=== PATIENT | female | born 1995 | race Caucasian/White ===

== ENCOUNTER 2017-01-13 21:20 | Emergency (ER) | payer MEDICAID, OTHER ==
[~2017-01-13] VITALS: Ht 165.1 cm; Wt 54.1 kg
[~2017-01-13 21:20] MED LIST: LEV063IS NEB
[2017-01-13 22:27] LABS: Urine Bilirubin Negative (Negative); Urine Blood Negative /uL (Negative); Urine Color Yellow (Yellow); Urine Glucose Normal (Normal); Urine Ketone Negative (Negative); Urine Mucus FEW (None Seen); Urine Nitrite Negative (Negative); Urine RBC 3 /hpf (0 - 4); Urine Squamous Epithelial Cell FEW /hpf (<5); Urine Urobilinogen Normal (Negative)
[2017-01-13 22:49] LABS: Basophils # (auto) 0 uL; Basophils % (auto) 0.1 % (0.0-2.0); CONDITION Y; Eosinophils # (auto) 0.1 uL; Hematocrit 40.6 % (36.0-46.0); Hemoglobin 13.7 g/dL (12.2-16.2); Lymphocytes % (auto) 26.2 % (10.0-50.0); Mean Corpuscular Hemoglobin 27.6 pg (28.0-32.0); Mean Corpuscular Hgb Conc. 33.8 g/dL (32.0-36.0); Mean Corpuscular Volume 81.6 fL (80.0-100.0); Monocytes # (auto) 0.6 uL; Monocytes % (auto) 7.5 % (0.0-12.0); Neutrophils % (auto) 65.2 % (37.0-80.0); Platelet Count (auto) 311 10^3/uL (140-450); Red Cell Distribution Width 15.5 % (11.6-16.0); White Blood Cell 7.7 10^3/uL (4.4-10.8)
[2017-01-13 23:06] LABS: BUN/Creatinine Ratio 19.7; Calcium 8.8 mg/dL (8.5-10.1); Magnesium 2.2 mg/dL (1.6-2.6); Potassium 3.9 mmol/L (3.5-5.1)
[2017-01-13 23:09] LABS: Bilirubin, Total 0.3 mg/dL (0.2-1.0); Total Protein 7.3 g/dL (6.4-8.2)
[2017-01-14 07:38] VITALS: BP 106/59
[2017-01-14] MEDS ORDERED: NITROFURANTOIN (MONO) 100 mg CAP PO ONE (08:00)
[2017-01-14] MEDS ORDERED: PANTOPRAZOLE 40 MG TAB PO ONE (08:15)
== END 2017-01-14 08:39 | disposition home or self-care (01) ==
LOC: ER 21:41
DX: K29.70 Gastritis, unspecified, without bleeding (principal); N39.0 Urinary tract infection, site not specified; J45.909 Unspecified asthma, uncomplicated; Z88.8 Allergy status to other drugs, medicaments and biological substances; Z79.899 Other long term (current) drug therapy
CPT/HCPCS: 36415; 71020; 80053; 80307; 81001; 83735; 84702; 85025

== ENCOUNTER 2017-01-23 22:05 | Emergency (ER) | payer OTHER ==
[~2017-01-23] VITALS: Ht 165.1 cm; Wt 52.2 kg
[2017-01-23 22:24] VITALS: BP 115/78
[2017-01-24] MEDS ORDERED: IBUPROFEN 600 MG TAB PO ONE (00:30)
== END 2017-01-24 00:46 | disposition home or self-care (01) ==
LOC: ER 22:10
DX: S93.402A Sprain of unspecified ligament of left ankle, initial encounter (principal); S90.32XA Contusion of left foot, initial encounter; J45.909 Unspecified asthma, uncomplicated; X50.1XXA Overexertion from prolonged static or awkward postures, initial encounter; Y93.89 Activity, other specified; Y99.8 Other external cause status; Y92.89 Other specified places as the place of occurrence of the external cause
CPT/HCPCS: 73620; 81025

== ENCOUNTER 2017-02-25 20:25 | Emergency (ER) | payer OTHER, MEDICAID ==
[~2017-02-25] VITALS: Ht 170.2 cm; Wt 49.9 kg
[2017-02-25] MEDS ORDERED: LORazepam 2MG/ML-1ML VIAL ONE (21:51)
[2017-02-25] MEDS ORDERED: LEVETIRACETAM 500 MG/5ML INJ IV ONE (21:58)
[2017-02-25] MEDS ORDERED: LEVETIRACETAM INJ 1,000 MG in SODIUM CHL 0.9% 100 ML IV ONE (22:15)
[2017-02-25] MEDS ORDERED: LORazepam 2MG/ML-1ML VIAL IV ONE (22:15)
[2017-02-25] MEDS ORDERED: ONDANSETRON HCL 4 MG/2 ML VIAL IV ONE (22:30)
[2017-02-25] MEDS ORDERED: MORPHINE SULF INJ 2 MG/ML SYRINGE 1ML IV ONE (22:30)
[2017-02-25 22:36] LABS: Urine Bilirubin Negative (Negative); Urine Blood Negative /uL (Negative); Urine Color Yellow (Yellow); Urine Glucose Normal (Normal); Urine Ketone Negative (Negative); Urine Mucus FEW (None Seen); Urine Nitrite Negative (Negative); Urine RBC 4 /hpf (0 - 4); Urine Squamous Epithelial Cell MOD /hpf (<5)
[2017-02-25 23:11] LABS: Basophils # (auto) 0 uL; Basophils % (auto) 0.3 % (0.0-2.0); CONDITION Y; Eosinophils # (auto) 0.2 uL; Eosinophils % (auto) 3.7 % (0.0-7.0); Hematocrit 37.3 % (36.0-46.0); Hemoglobin 12.5 g/dL (12.2-16.2); Lymphocytes # (auto) 1.4 uL; Lymphocytes % (auto) 25.1 % (10.0-50.0); Mean Corpuscular Hemoglobin 28.1 pg (28.0-32.0); Mean Corpuscular Hgb Conc. 33.5 g/dL (32.0-36.0); Mean Corpuscular Volume 84.1 fL (80.0-100.0); Monocytes # (auto) 0.4 uL; Monocytes % (auto) 6.9 % (0.0-12.0); Neutrophils # (auto) 3.5 uL; Platelet Count (auto) 244 10^3/uL (140-450); Red Cell Distribution Width 16.7 % (11.6-16.0); White Blood Cell 5.4 10^3/uL (4.4-10.8)
[2017-02-25 23:48] LABS: Potassium 4.1 mmol/L (3.5-5.1)
[2017-02-25 23:55] LABS: Albumin 3.6 g/dL (3.4-5.0); BUN/Creatinine Ratio 21.9; Bilirubin, Total 0.4 mg/dL (0.2-1.0)
[2017-02-26] MEDS ORDERED: LORazepam 2MG/ML-1ML VIAL IV ONE
[2017-02-26] MEDS ORDERED: cefTRIAXone 1GM/50ML D5W 50 ML IV ONE (01:45)
[2017-02-26 08:19] VITALS: BP 102/52
== END 2017-02-26 08:25 | disposition home or self-care (01) ==
LOC: EDBD 20:25 → ER 20:28
DX: G40.909 Epilepsy, unspecified, not intractable, without status epilepticus (principal); J45.909 Unspecified asthma, uncomplicated; N39.0 Urinary tract infection, site not specified
CPT/HCPCS: 36415; 70450; 80053; 80307; 81001; 81025; 85025; 96365; 96366; 96367; 96375; 96376; 99285; J0696; J1953; J2060; J2270; J2405

== ENCOUNTER 2017-02-26 11:51 | Emergency (ER) | payer OTHER, MEDICAID ==
[~2017-02-26] VITALS: Ht 165.1 cm; Wt 54.4 kg
[2017-02-26] MEDS ORDERED: clonazePAM 0.5 MG TAB PO ONE (15:15)
[2017-02-26] MEDS ORDERED: ACETAMINOPHEN 500 MG TAB PO ONE (16:00)
[2017-02-26] MEDS ORDERED: LORazepam 2MG/ML-1ML VIAL ONE ×2 (16:46→18:03)
[2017-02-26] MEDS ORDERED: ALBUTEROL SULF 2.5 MG/0.5ML(0.5%) NEB SOLN NEB ONE ×2 (17:00→17:15)
[2017-02-26] MEDS ORDERED: LORazepam 2MG/ML-1ML VIAL IV ONE ×2 (17:00→17:15)
[2017-02-26] MEDS ORDERED: IPRATROPIUM BROM 0.5 MG/2.5ML INH SOL NEB ONE ×2 (17:00→17:15)
[2017-02-26] MEDS ORDERED: AMMONIA 0.33 ML INHALANT IN ONE (18:07)
[2017-02-26 18:10] VITALS: BP 105/66
== END 2017-02-26 18:40 | disposition short-term general hospital (02) ==
LOC: EDBD 11:51 → ER 11:51
DX: G40.909 Epilepsy, unspecified, not intractable, without status epilepticus (principal); N39.0 Urinary tract infection, site not specified; R42 Dizziness and giddiness; J45.909 Unspecified asthma, uncomplicated; R41.82 Altered mental status, unspecified
CPT/HCPCS: 94640; 96374; 96375; 99285; J2060

== ENCOUNTER 2018-02-01 14:16 | Emergency (ER) | payer OTHER, MEDICAID ==
[2018-02-01] MEDS ORDERED: LORazepam 2MG/ML-1ML VIAL ONE ×3 (14:29→22:49)
[2018-02-01] MEDS ORDERED: SODIUM CHLORIDE 0.9% 1,000 ML IV ONE (14:38)
[2018-02-01] MEDS ORDERED: LORazepam 2MG/ML-1ML VIAL IV ONE ×2 (14:45)
[2018-02-01] MEDS ORDERED: LEVETIRACETAM INJ 1,000 MG in D5W 5% 100 ML IV ONE (14:45)
[2018-02-01 15:00] LABS: Basophils # (auto) 0 uL; Basophils % (auto) 0.2 % (0.0-2.0); Eosinophils # (auto) 0.1 uL; Eosinophils % (auto) 0.6 % (0.0-7.0); Hematocrit 41.8 % (36.0-46.0); Hemoglobin 14.3 g/dL (12.2-16.2); Lymphocytes % (auto) 11.5 % (10.0-50.0); Mean Corpuscular Hemoglobin 29.6 pg (28.0-32.0); Mean Corpuscular Hgb Conc. 34.2 g/dL (32.0-36.0); Mean Corpuscular Volume 86.4 fL (80.0-100.0); Monocytes # (auto) 0.5 uL; Monocytes % (auto) 5.3 % (0.0-12.0); Neutrophils # (auto) 7.5 uL; Neutrophils % (auto) 82.4 % (37.0-80.0); Platelet Count (auto) 240 10^3/uL (140-450); Red Blood Cells 4.83 10^6/uL (4.0-5.20); Red Cell Distribution Width 13.4 % (11.8-14.3); White Blood Cell 9.1 10^3/uL (4.4-10.8)
[2018-02-01 15:21] LABS: BUN/Creatinine Ratio 9.9; Bilirubin, Total 0.7 mg/dL (0.2-1.0); Calcium 8.5 mg/dL (8.5-10.1); Potassium 3.5 mmol/L (3.5-5.1)
[2018-02-01 15:33] LABS: Beta HCG, Quantitative < 1 mlU/mL (1-3); Thyroid Stimulating Hormone 0.92 uIU/mL (0.358-3.74)
[2018-02-01] MEDS ORDERED: IBUPROFEN 600 MG TAB PO ONE (16:15)
[2018-02-01 16:58] LABS: Alcohol, Urine < 3.0 mg/dL (0-5); Amphetamine Screen, Urine NEGATIVE (NEGATIVE); Barbiturate Scree,Urine NEGATIVE (NEGATIVE); Benzodiazephine Screen, Urine POSITIVE (NEGATIVE); Cannabinoid Screen, Urine NEGATIVE (NEGATIVE); Cocaine Screen, Urine NEGATIVE (NEGATIVE); Opiate Scree,Urine NEGATIVE (NEGATIVE); Phencyclidine Screen, Urine NEGATIVE (NEGATIVE)
[2018-02-01 17:00] LABS: Urine Bacteria FEW /hpf (None Seen); Urine Blood Negative /uL (Negative); Urine Mucus FEW (None Seen); Urine Specific Gravity 1.019 (1.001-1.035); Urine WBC 14 /hpf (0 - 5)
[2018-02-01 18:10] VITALS: BP 104/57
[2018-02-01] MEDS ORDERED: PHENobarbital SODIUM 130 MG/ML VL ONE (23:29)
[2018-02-01] MEDS ORDERED: PHENobarbital SODIUM 65 MG/ML VL ONE (23:29)
== END 2018-02-01 18:28 | disposition home or self-care (01) ==
LOC: ER 14:16 → EDBD 14:16 → ER 18:28
DX: G40.909 Epilepsy, unspecified, not intractable, without status epilepticus (principal); N39.0 Urinary tract infection, site not specified; J45.909 Unspecified asthma, uncomplicated; F17.210 Nicotine dependence, cigarettes, uncomplicated; F12.10 Cannabis abuse, uncomplicated
CPT/HCPCS: 36415; 70450; 71045; 80053; 80307; 81001; 81025; 82962; 83735; 84443; 84702; 85025; 93005; 94761; 99285; J1953; J2060; J7060

== ENCOUNTER 2018-02-01 21:18 | Emergency (ER) | payer OTHER, MEDICAID ==
[~2018-02-01] VITALS: Ht 167.6 cm; Wt 54.4 kg
[~2018-02-01 21:18] MED LIST changes: +LORazepam 2MG/ML-1ML VIAL ONE
[2018-02-01] MEDS ORDERED: LORazepam 2MG/ML-1ML VIAL IV ONE ×2 (21:30→23:00)
[2018-02-01 22:28] LABS: Basophils # (auto) 0 uL; Basophils % (auto) 0.2 % (0.0-2.0); Eosinophils # (auto) 0.1 uL; Eosinophils % (auto) 1.2 % (0.0-7.0); Hematocrit 36.8 % (36.0-46.0); Hemoglobin 12.8 g/dL (12.2-16.2); Lymphocytes # (auto) 1.3 uL; Lymphocytes % (auto) 22.8 % (10.0-50.0); Mean Corpuscular Hemoglobin 30.2 pg (28.0-32.0); Mean Corpuscular Hgb Conc. 34.9 g/dL (32.0-36.0); Mean Corpuscular Volume 86.3 fL (80.0-100.0); Monocytes # (auto) 0.4 uL; Monocytes % (auto) 8.1 % (0.0-12.0); Neutrophils # (auto) 3.7 uL; Neutrophils % (auto) 67.7 % (37.0-80.0); Nucleated Red Blood Cells % 0.1 %; Platelet Count (auto) 205 10^3/uL (140-450); Red Blood Cells 4.26 10^6/uL (4.0-5.20); Red Cell Distribution Width 13.6 % (11.8-14.3); White Blood Cell 5.5 10^3/uL (4.4-10.8)
[2018-02-01 22:51] LABS: Albumin 3.7 g/dL (3.4-5.0); BUN/Creatinine Ratio 12.5; Bilirubin, Total 0.9 mg/dL (0.2-1.0); Calcium 8.2 mg/dL (8.5-10.1); Potassium 3.3 mmol/L (3.5-5.1); Total Protein 6.2 g/dL (6.4-8.2)
[2018-02-01] MEDS ORDERED: LEVETIRACETAM 500 MG/5ML INJ IV ONE (22:53)
[2018-02-01] MEDS ORDERED: LEVETIRACETAM INJ 1,000 MG in D5W 5% 100 ML IV ONE (23:00)
[2018-02-01] MEDS ORDERED: PHENobarbital SODIUM INJ 600 MG in SODIUM CHL 0.9% 100 ML IV ONE (23:15)
[2018-02-01] MEDS ORDERED: POTASSIUM CHL 20 Meq TABLET PO ONE (23:45)
[2018-02-02 00:12] VITALS: BP 104/66
[2018-02-02] MEDS ORDERED: NALBUPHINE HCL 10 MG/1ml INJECTION IV ONE (00:15)
== END 2018-02-02 00:37 | disposition short-term general hospital (02) ==
LOC: ER 21:18
DX: G40.909 Epilepsy, unspecified, not intractable, without status epilepticus (principal); E87.6 Hypokalemia; F17.210 Nicotine dependence, cigarettes, uncomplicated; F12.10 Cannabis abuse, uncomplicated; J45.909 Unspecified asthma, uncomplicated; Z88.6 Allergy status to analgesic agent
CPT/HCPCS: 36415; 80053; 85025; 94761; 96365; 96375; 96376; 99285; J1953; J2060; J2300; J2560; J7060

== ENCOUNTER 2018-08-17 22:41 | Emergency (ER) | payer OTHER, MEDICAID ==
[~2018-08-17] VITALS: Ht 165.1 cm; Wt 54.4 kg
[~2018-08-17 22:41] MED LIST changes: -LORazepam 2MG/ML-1ML VIAL ONE
[2018-08-17 23:22] LABS: Basophils # (auto) 0 uL; Basophils % (auto) 0.3 % (0.0-2.0); Eosinophils # (auto) 0.1 uL; Eosinophils % (auto) 1.2 % (0.0-7.0); Hematocrit 40.1 % (36.0-46.0); Hemoglobin 13.5 g/dL (12.2-16.2); Lymphocytes # (auto) 0.9 uL; Lymphocytes % (auto) 12.7 % (10.0-50.0); Mean Corpuscular Hemoglobin 29.2 pg (28.0-32.0); Mean Corpuscular Hgb Conc. 33.7 g/dL (32.0-36.0); Mean Corpuscular Volume 86.6 fL (80.0-100.0); Monocytes # (auto) 0.7 uL; Monocytes % (auto) 9.2 % (0.0-12.0); Neutrophils # (auto) 5.5 uL; Neutrophils % (auto) 76.6 % (37.0-80.0); Platelet Count (auto) 286 10^3/uL (140-450); Red Blood Cells 4.63 10^6/uL (4.0-5.20); Red Cell Distribution Width 14.3 % (11.8-14.3); White Blood Cell 7.2 10^3/uL (4.4-10.8)
[2018-08-17 23:41] LABS: Albumin 3.7 g/dL (3.4-5.0); Anion Gap 14 (5-15); Blood Alcohol < 3.0 mg/dL (0-5); Blood Urea Nitrogen 19 mg/dL (7-18); Calcium 8.4 mg/dL (8.5-10.1); Carbon Dioxide 20 mmol/L (21-32); Chloride 108 mmol/L (98-107); Glucose 100 mg/dL (74-106); Potassium 3.2 mmol/L (3.5-5.1); Sodium 142 mmol/L (136-145)
[2018-08-17 23:42] LABS: BUN/Creatinine Ratio 19.8; GFR African American 94 mL/min; GFR Non-African American 78 mL/min
[2018-08-17 23:45] LABS: Alanine Aminotransferase 55 U/L (13-56); Alkaline Phosphatase 50 U/L (45-117); Aspartate Aminotransferase 29 U/L (15-37); Bilirubin, Total 0.4 mg/dL (0.2-1.0); Total Protein 6.7 g/dL (6.4-8.2)
[2018-08-18 00:18] LABS: Phenytoin (Dilantin) < 0.4 ug/mL (10-20); Valproic Acid (Depakene) < 3.0 ug/mL (50-100)
[2018-08-18] MEDS ORDERED: LORazepam 2MG/ML-1ML VIAL ONE ×3 (00:24→06:44)
[2018-08-18] MEDS ORDERED: LEVETIRACETAM 500 MG/5ML INJ IV ONE (00:44)
[2018-08-18] MEDS ORDERED: LEVETIRACETAM INJ 1,000 MG in D5W 5% 100 ML IV ONE (00:45)
[2018-08-18] MEDS ORDERED: LORazepam 2MG/ML-1ML VIAL IV ONE ×3 (03:00→06:45)
[2018-08-18] MEDS ORDERED: MIDAZOLAM HCL 1MG/1ML-2 ML VIAL ONE (06:57)
[2018-08-18] MEDS ORDERED: MIDAZOLAM HCL 1MG/1ML-2 ML VIAL IV ONE ×3 (07:15→10:45)
[2018-08-18] MEDS ORDERED: POTASSIUM CHL 20MEQ/100ML 100 ML IV ONE (07:45)
[2018-08-18 10:31] VITALS: BP 99/63
== END 2018-08-18 10:58 | disposition short-term general hospital (02) ==
LOC: EDUNIT# 22:41 → EDBD 22:41 → ER 22:54
DX: G40.909 Epilepsy, unspecified, not intractable, without status epilepticus (principal); E87.6 Hypokalemia; E86.0 Dehydration; J45.909 Unspecified asthma, uncomplicated; F17.210 Nicotine dependence, cigarettes, uncomplicated; F12.10 Cannabis abuse, uncomplicated; Z91.14 Patient's other noncompliance with medication regimen
CPT/HCPCS: 36415; 70450; 71045; 72125; 80053; 80164; 80185; 80320; 84702; 85025; 96365; 96366; 96367; 96375; 96376; 99285; J1953; J2060; J2250; J3480; J7030; J7060

== ENCOUNTER 2018-10-09 20:54 | Inpatient (IN) | payer OTHER, MEDICAID ==
[~2018-10-09] VITALS: Ht 162.6 cm; Wt 64.0 kg
[2018-10-09] MEDS ORDERED: LORazepam 2MG/ML-1ML VIAL IV ONE ×2 (21:15)
[2018-10-09] MEDS ORDERED: LEVETIRACETAM INJ 1,000 MG in D5W 5% 100 ML IV ONE (21:15)
[2018-10-09 21:53] LABS: Basophils # (auto) 0 uL; Basophils % (auto) 0.5 % (0.0-2.0); Eosinophils # (auto) 0.1 uL; Eosinophils % (auto) 1.3 % (0.0-7.0); Hematocrit 41.4 % (36.0-46.0); Hemoglobin 13.8 g/dL (12.2-16.2); Lymphocytes # (auto) 0.8 uL; Lymphocytes % (auto) 14.5 % (10.0-50.0); Mean Corpuscular Hemoglobin 28.8 pg (28.0-32.0); Mean Corpuscular Hgb Conc. 33.4 g/dL (32.0-36.0); Mean Corpuscular Volume 86.1 fL (80.0-100.0); Monocytes # (auto) 0.5 uL; Monocytes % (auto) 9.3 % (0.0-12.0); Neutrophils # (auto) 4.3 uL; Neutrophils % (auto) 74.4 % (37.0-80.0); Nucleated Red Blood Cells % 0.1 %; Platelet Count (auto) 224 10^3/uL (140-450); Red Blood Cells 4.81 10^6/uL (4.0-5.20); Red Cell Distribution Width 14.4 % (11.8-14.3); White Blood Cell 5.8 10^3/uL (4.4-10.8)
[2018-10-09] MEDS ORDERED: ETOMIDATE (2MG/ML) 20ML VIAL IV ONE ×2 (21:53→23:00)
[2018-10-09] MEDS ORDERED: SUCCINYLCHOLINE CHLORIDE 20 MG/ML 10ML VIAL IV ONE ×2 (21:53→23:00)
[2018-10-09 22:07] LABS: Alanine Aminotransferase 20 U/L (13-56); Albumin 3.8 g/dL (3.4-5.0); Anion Gap 11 (5-15); Blood Alcohol < 3.0 mg/dL (0-5); Blood Urea Nitrogen 15 mg/dL (7-18); Calcium 8.5 mg/dL (8.5-10.1); Carbon Dioxide 22 mmol/L (21-32); Chloride 107 mmol/L (98-107); Glucose 91 mg/dL (74-106); Potassium 3.3 mmol/L (3.5-5.1); Sodium 140 mmol/L (136-145)
[2018-10-09 22:10] LABS: Alkaline Phosphatase 63 U/L (45-117); Aspartate Aminotransferase 12 U/L (15-37); BUN/Creatinine Ratio 16.7; Bilirubin, Total 0.4 mg/dL (0.2-1.0); GFR African American 101 mL/min; GFR Non-African American 83 mL/min; Total Protein 6.8 g/dL (6.4-8.2)
[2018-10-09] MEDS: PROPOFOL 100 ML IV SCH (22:10)
[2018-10-09] MEDS ORDERED: PROPOFOL 100 ML IV ONE (22:15)
[2018-10-09] MEDS: MIDAZOLAM DRIP 50 mg/50mL 50 ML IV SCH (22:30)
[2018-10-09] MEDS ORDERED: fentaNYL Drip 2500mCg/250mlNS 250 ML IV SCH (22:35)
[2018-10-09] MEDS ORDERED: fentaNYL Drip 2500mCg/250mlNS 250 ML IV ONE (22:38)
[2018-10-09] MEDS: fentaNYL Drip 2500mCg/250mlNS 250 ML IV SCH (22:48)
[2018-10-09] MEDS: SODIUM CHLORIDE 0.9% 1,000 ML IV SCH (23:57)
[2018-10-10] VITALS (78 sets, daily range): BP systolic 81–166; BP diastolic 37–74
[2018-10-10 00:04] LABS: Urine Bacteria FEW /hpf (None Seen); Urine Blood Negative /uL (Negative); Urine Mucus FEW (None Seen); Urine Specific Gravity 1.025 (1.001-1.035); Urine WBC 8 /hpf (0 - 5)
[2018-10-10 00:23] LABS: Alcohol, Urine < 3.0 mg/dL (0-5)
[2018-10-10 00:24] LABS: Amphetamine Screen, Urine NEGATIVE (NEGATIVE); Barbiturate Scree,Urine NEGATIVE (NEGATIVE); Benzodiazephine Screen, Urine POSITIVE (NEGATIVE); Cannabinoid Screen, Urine POSITIVE (NEGATIVE); Cocaine Screen, Urine NEGATIVE (NEGATIVE); Opiate Scree,Urine NEGATIVE (NEGATIVE); Phencyclidine Screen, Urine NEGATIVE (NEGATIVE)
[2018-10-10 00:45] LABS: Phenytoin (Dilantin) < 0.4 ug/mL (10-20); Valproic Acid (Depakene) 5 ug/mL (50-100)
[2018-10-10] MEDS ORDERED: cefTRIAXone 1GM/50ML D5W 50 ML IV ONE (03:15)
[2018-10-10] MEDS ORDERED: ONDANSETRON HCL 4 MG/2 ML VIAL IV PRN (05:30)
[2018-10-10] MEDS ORDERED: ACETAMINOPHEN 500 MG TAB PO PRN (05:30)
--- NOTE | 2018-10-10 05:43 | NUR ---
REPORT RECEIVED FROM BRANDON KEATING RN.
--- NOTE | 2018-10-10 06:15 | NUR ---
Admit to ICU from ER on vent DANIEL,AMBERadmitted to ICU via gurney on healthcare science specialist, intubated and being bagged by Respiratory Therapist. Patient transfered to bed, connected to mechanical ventilator by therapist, RHONDA at bedside. Patient connected to ICU monitoring, weighed by bedscale, oriented to Mike Bass, primary RN, unit, ventilator and sedation. NOTE:
[2018-10-10] MEDS ORDERED: ALBUTEROL SULF 2.5 MG/0.5ML(0.5%) NEB SOLN NEB PRN (06:45)
[2018-10-10] MEDS ORDERED: LORazepam 2MG/ML-1ML VIAL IV PRN (06:45)
--- NOTE | 2018-10-10 07:35 | NUR ---
SPOKE WITH FATHER OF PT NOLVIA CABEZAS VIA TELEPHONE, HE PROVIDED PT NAME , GAVE UPDATE. FATHER LIVES IN [place] DID NOT WANT TO SET UP PASS WORD UNTIL HE SPEAKS WITH MOTHER OF PT AND SISTER.
--- NOTE | 2018-10-10 08:15 | NUR ---
PATIENTS SISTER TIA CALLED FOR UPDATE PROVIDED PASSWORD, UPDATED ON CURRENT STATUS AND PLAN OF CARE.
[2018-10-10 08:25] LABS: Basophils # (auto) 0 uL; Basophils % (auto) 0.2 % (0.0-2.0); Eosinophils # (auto) 0.1 uL; Eosinophils % (auto) 1.6 % (0.0-7.0); Hematocrit 43.6 % (36.0-46.0); Hemoglobin 14.3 g/dL (12.2-16.2); Lymphocytes # (auto) 1.8 uL; Lymphocytes % (auto) 20.5 % (10.0-50.0); Mean Corpuscular Hemoglobin 28.9 pg (28.0-32.0); Mean Corpuscular Hgb Conc. 32.7 g/dL (32.0-36.0); Mean Corpuscular Volume 88.3 fL (80.0-100.0); Monocytes # (auto) 0.9 uL; Monocytes % (auto) 10.7 % (0.0-12.0); Neutrophils # (auto) 5.9 uL; Nucleated Red Blood Cells % 0.1 %; Platelet Count (auto) 192 10^3/uL (140-450); Red Blood Cells 4.94 10^6/uL (4.0-5.20); Red Cell Distribution Width 14.5 % (11.8-14.3); White Blood Cell 8.8 10^3/uL (4.4-10.8)
[2018-10-10 08:40] LABS: BUN/Creatinine Ratio 15.2; Calcium 8.4 mg/dL (8.5-10.1); Potassium 3.4 mmol/L (3.5-5.1)
--- NOTE | 2018-10-10 09:14 | NUR ---
UNABLE TO PERFORM SEDATION VACATION- PATIENT UNSTABLE AT THIS TIME Addendum: 10/10/18 at 0915 by Brionna Figueroa RN Amended: Links added.
[2018-10-10] MEDS: SODIUM CHLORIDE 0.9% 1,000 ML IV SCH ×2 (09:45→21:53)
--- NOTE | 2018-10-10 09:51 | NUR ---
DR LOWE AND PATIENTS MOTHER ROSANNA AT BEDSIDE
[2018-10-10] MEDS: PANTOPRAZOLE 40 MG/10 ML VIAL IV SCH (10:31)
[2018-10-10] MEDS: LEVETIRACETAM INJ 500 MG in D5W 5% 100 ML IV SCH ×2 (10:32→21:50)
--- NOTE | 2018-10-10 11:19 | NUR ---
DR CARBONE AT BEDSIDE DISCUSSED PLAN OF CARE WITH PATIENT MOTHER, ROSANNA AT BEDSIDE
[2018-10-10] MEDS ORDERED: POTASSIUM CHL 20MEQ/100ML 100 ML IV ONE (12:15)
--- NOTE | 2018-10-10 13:32 | NUR ---
I faxed transfer order and transfer summary to [facility].
--- NOTE | 2018-10-10 16:20 | NUR ---
MOTTLE LAY UP OPERATOR AT BEDSIDE
--- NOTE | 2018-10-10 19:15 | NUR ---
REPORT Report received from COURTNEY Staton. Care assumed.
--- NOTE | 2018-10-10 19:36 | NUR ---
PHONE CALL FROM [facility] Received phone call from Fanny with [facility]. Updated on pt condition and latest vital signs. Per Fanny, pt has been authorized to stay at [facility] today.
--- NOTE | 2018-10-10 19:55 | NUR ---
PHONE CALL FROM [facility] RE: TRANSFER Received phone call from Dari with [facility] regarding possible transfer this evening. Notified Dari of D/C order comment noted by Dr. Williamson which stated "Transfer to a [facility] facility if ok with Dr. Mcguire." Copy of D/C order faxed to fax number provided by Dari ([phone]). Per Dari, pt will remain at [facility] for the evening and follow-up will be completed tomorrow.
--- NOTE | 2018-10-10 20:25 | NUR ---
RESTLESSNESS/SEDATION INCREASED Pt restless with eyes open and attempting to sit up in bed as well as pull at ETT. Pt instructed not to pull at ETT and to try to remain calm. Pt informed of location, situation, and time. Even after attempting to calm pt, pt remains restless and continues to attempt to pull at ETT. Sedation increased. See IV spreadsheet. Will continue to monitor pt.
--- NOTE | 2018-10-10 20:30 | NUR ---
INITIAL ASSESSMENT Pt restless in bed attempting to pull at ETT. Attempted to reorient pt to location, situation, and time. ETT education provided but pt remains restless and still attempting to pull at ETT. Sedation increased. VSS. See IV spreadsheet and completed physical assessment intervention. Bed locked, in lowest position with top two side rails up, and call light within reach. All alarms on and audible. RN remains at bedside and will continue to monitor pt.
--- NOTE | 2018-10-10 20:45 | NUR ---
RESTLESSNESS/SEDATION INCREASED Pt remains restless with eyes open and continues attempting to sit up in bed as well as pull at ETT. Pt instructed not to pull at ETT and to try to remain calm. Pt informed of location, situation, and time. Even after attempting to calm pt, pt remains restless and continues to attempt to pull at ETT. Sedation increased. See IV spreadsheet. Will continue to monitor pt.
--- NOTE | 2018-10-10 20:50 | NUR ---
RESTLESSNESS RESOLVED Pt's restlessness resolved. Pt calm with eyes closed and not attempting to pull at ETT. VSS. Will continue to monitor pt.
[2018-10-10] MEDS: PROPOFOL 100 ML IV SCH (22:10)
[2018-10-10] MEDS: MIDAZOLAM DRIP 50 mg/50mL 50 ML IV SCH (22:15)
[2018-10-10] MEDS: cefTRIAXone 1GM/50ML D5W 50 ML IV SCH (22:15)
--- NOTE | 2018-10-10 22:33 | NUR ---
DECREASED BP/FENTANYL AND PROPOFOL HELD Pt's BP 81/38. Fentanyl and Propofol infusions held. Will continue to monitor pt.
[2018-10-10] MEDS: fentaNYL Drip 2500mCg/250mlNS 250 ML IV SCH (22:36)
--- NOTE | 2018-10-10 22:47 | NUR ---
BP REASSESSMENT Pt's BP 101/50. Pt resting in bed with eyes closed with no restlessness noted. Will continue to monitor pt.
[2018-10-11] VITALS (100 sets, daily range): BP systolic 84–134; BP diastolic 33–77
--- NOTE | 2018-10-11 | NUR ---
ELEVATED TEMPERATURE Pt's oral temperature 101.5 degrees F. Cooling measures implemented.
--- NOTE | 2018-10-11 00:01 | NUR ---
RESTLESSNESS/AGITATION/FENTANYL RESTARTED Pt restless and agitated. Attempted to reorient pt to location, situation, and time but pt remains restless, sitting up in bed, and attempting to pull on ETT. Fentanyl restarted. Will continue to monitor pt.
--- NOTE | 2018-10-11 00:45 | NUR ---
IV REMOVAL 20 gauge left hand IV D/C'd with clean sterile technique. Catheter fully intact. No trauma noted to site. Pressure dressing applied to site. Pt tolerated well. Addendum: 10/11/18 at 0114 by Mandie Hebert RN RN Correction: 18 gauge left hand IV D/C'd with clean sterile technique.
--- NOTE | 2018-10-11 00:50 | NUR ---
IV INSERTION IV access obtained via clean sterile technique by inserting 20 gauge catheter into right FA after 1 attempt. IV secured properly. No trauma to site noted. Pt tolerated well.
--- NOTE | 2018-10-11 00:54 | NUR ---
IV REMOVAL 18 gauge right FA IV D/C'd with clean sterile technique. Catheter fully intact. No trauma noted to site. Pressure dressing applied to site. Pt tolerated well.
--- NOTE | 2018-10-11 01:01 | NUR ---
RESTLESSNESS RESOLVED Pt appears calm with eyes closed and absence of movement noted. VSS. Will continue to monitor pt.
[2018-10-11] MEDS: MIDAZOLAM DRIP 50 mg/50mL 50 ML IV SCH ×3 (02:05→21:58)
[2018-10-11 03:56] LABS: Basophils # (auto) 0 uL; Basophils % (auto) 0.3 % (0.0-2.0); Eosinophils # (auto) 0.1 uL; Eosinophils % (auto) 1.7 % (0.0-7.0); Hemoglobin 13.5 g/dL (12.2-16.2); Lymphocytes # (auto) 1.3 uL; Lymphocytes % (auto) 19.2 % (10.0-50.0); Mean Corpuscular Hgb Conc. 34.6 g/dL (32.0-36.0); Mean Corpuscular Volume 86.5 fL (80.0-100.0); Monocytes # (auto) 0.8 uL; Monocytes % (auto) 11.4 % (0.0-12.0); Neutrophils # (auto) 4.6 uL; Neutrophils % (auto) 67.4 % (37.0-80.0); Nucleated Red Blood Cells % 0.1 %; Platelet Count (auto) 164 10^3/uL (140-450); Red Cell Distribution Width 14.4 % (11.8-14.3); White Blood Cell 6.8 10^3/uL (4.4-10.8)
[2018-10-11 05:02] LABS: BUN/Creatinine Ratio 11.5; Calcium 7.9 mg/dL (8.5-10.1); Magnesium 2.2 mg/dL (1.6-2.6); Potassium 3.5 mmol/L (3.5-5.1)
--- NOTE | 2018-10-11 05:15 | NUR ---
BATH/LINEN CHANGE Pt given complete CHG bath. Skin integrity assessed for any changes, no changes noted. Linens changed. Pt repositioned for comfort. Pt tolerated fairly and VSS.
[2018-10-11] MEDS: SODIUM CHLORIDE 0.9% 1,000 ML IV SCH ×3 (05:45→21:57)
--- NOTE | 2018-10-11 07:15 | NUR ---
REPORT Report given to COURTNEY Mcconnell. Care endorsed.
--- NOTE | 2018-10-11 07:30 | NUR ---
BEDSIDE REPORT RECEIVED PATIENT AWAKE LOOKING AROUND ROOM WITH BILATERAL MITTENS ON, ATTEMPTING TO REACH AT ETT. REPORT RECEIVED AT BEDSIDE FOR PATIENTS SAFETY. PLAN OF CARE REVIEWED INCLUDING CPAP TRIAL. SEE PHYSICAL AND INTERVENTIONS FOR MORE INFORMATION.
--- NOTE | 2018-10-11 07:45 | NUR ---
NEUROLOGIST AT BEDSIDE DR. LOWE AT BEDSIDE AWARE OF CPAP TRIAL ORDERS, PT ANSWERING SIMPLE QUESTIONS WITH NODDING HEAD AND FOLLOWING SIMPLE COMMAND. WHILE MD ASSESSMENT MADE. PER DR. LOWE PATIENT IS OK TO BE TRANSFERRED TO [facility].
--- NOTE | 2018-10-11 07:50 | NUR ---
PATIENT PLACED ON CPAP TRIAL BY R.T AT BEDSIDE BEDSIDE ASSISTANCE REQUIRED PATIENT IS VERY ANXIOUS, ATTEMPTING TO PULL OFF MITTENS AND REACH AT ETT. FREQUENT REMINDING AND SAFETY MEASURES NEEDED.
--- NOTE | 2018-10-11 08:12 | NUR ---
SEIZURE CPAP FOR APPROX 20MIN, PATIENT NOTED TO HAVE A SEIZURE, SHAKING WHOLE BODY WITH BACK ARCHED IN, PATIENT SWITCHED FROM CPAP BACK TO AC BY R.T. NO ATIVAN GIVEN PATIENT WAS DONE ONCE RETRIEVED. DR. LOWE PAGED TO NOTIFY. CALLED BACK AND VERBALIZED UNDERSTANDING. MD AWARE PATIENT IS BACK ON SEDATION AND CPAP HELD.
--- NOTE | 2018-10-11 09:06 | NUR ---
I spoke with patient's primary nurse to discuss the plan of care for this patient-she said per Dr. Mcguire patient is okay to transfer to [facility]-I let her know that [facility] is going to require a new transfer order today.
[2018-10-11] MEDS: LEVETIRACETAM INJ 500 MG in D5W 5% 100 ML IV SCH ×2 (10:00→21:37)
[2018-10-11] MEDS: PANTOPRAZOLE 40 MG/10 ML VIAL IV SCH (10:00)
--- NOTE | 2018-10-11 10:00 | NUR ---
Family updated on pt status Family of STEVE SANCHEZ updated on patient's status and condition. All questions and concerns addressed. Mother, Anne verbalized understanding, spoke with Johanne via phone to also update, family requesting Dr. Francisco to be consulted as patient in the past had a ct showing abnormal results and they would like to verify if any of these findings could be a cause of frequent seizures as they are happening more often then previously. Family also notified of pending order to transfer to [facility], family is agreeing at this time.
--- NOTE | 2018-10-11 11:00 | NUR ---
Agitation Patient moderately sedated but is easily arousable, sits up straight and leans forward on bilateral elbows, reaches at ett. Frequent bedside monitoring needed. Sedation remains in place. Mittens to bilateral hands in place.
--- NOTE | 2018-10-11 12:15 | NUR ---
I faxed today's transfer order to [facility].
--- NOTE | 2018-10-11 15:00 | NUR ---
Restlessness Patient continues to wake up with light touch and reaches straight to ETT. Bilateral mittens in place. Sedation remains in place. Patient sensitive to sedation as hr noted in mid 50's and bp 90's. Will continue to monitor closely.
--- NOTE | 2018-10-11 16:27 | NUR ---
I spoke with [place] [employer]er [employer] Presser Dari [phone], she is aware of the transfer and is working on finding the patient a bed.
--- NOTE | 2018-10-11 16:47 | NUR ---
ANGEL HERRERA CALLING UPDATED ON TRANSFER, PER ANGEL SHE SPOKE TO KAMILA, ADOPTED MOTHER AGREES TO TRANSFER TO [facility], [facility] OR [facility]. AWAITING BED. CHART TO BE COPIED.
[2018-10-11] MEDS: PROPOFOL 100 ML IV SCH ×2 (18:03→21:37)
--- NOTE | 2018-10-11 18:15 | NUR ---
Respiratory note: received pt on vent, vent connected to red outlet and o2 source. Alarms are set and audible ambu bag and mask at bedside, bs are clear t/o, no sx done at this time. HME changed at this time. family at bedside. Rt name and pager assignment written on pts room board. Will continue to monitor.
--- NOTE | 2018-10-11 19:00 | NUR ---
TRANSFER TO BE HELD [facility] CALLED STATING PATIENT IS AUTHORIZED ANOTHER NIGHT TO STAY. DR. LOWE AWARE. CPAP TO BE ATTEMPTED IN A.M. Addendum: 10/11/18 at 1928 by Enedina Agarwal RN Ang Rodríguez family at bedside aware.
--- NOTE | 2018-10-11 19:50 | NUR ---
Johanne mitchell notified of hold on transfer, Johanne verbalized understandings.
--- NOTE | 2018-10-11 20:15 | NUR ---
VISITORS Pt's mother, Anne, and step-father at bedside. Updated on pt condition, POC, and answered all questions. Anne verbalized understanding.
--- NOTE | 2018-10-11 20:15 | NUR ---
OPENING SHIFT NOTE Received report from COURTNEY Mcconnell. Pt intubated and sedated. Pt resting in bed with no signs of distress noted. VSS. See IV spreadsheet and completed physical assessment intervention. Bed locked, in lowest position with top two side rails up, and call light within reach. All alarms on and audible. Will continue to monitor pt.
--- NOTE | 2018-10-11 20:21 | NUR ---
Respiratory note: AT BEDSIDE FOR ROUTINE VENT CHECK. FAMILY AT BEDSIDE. NO VENT CHANGES MADE. WILL CONTINUE TO MONITOR Q2H AND NEEDED.
[2018-10-11] MEDS: fentaNYL Drip 2500mCg/250mlNS 250 ML IV SCH (20:38)
--- NOTE | 2018-10-11 20:57 | NUR ---
RESTLESSNESS/AGITATION/SEDATION INCREASED Pt restless, attempting to get out of bed, and pull at ETT. Education provided and attempted to calm pt. Pt continued to attempt to pull at ETT and get out of bed. Sedation increased. See IV spreadsheet.
--- NOTE | 2018-10-11 21:30 | NUR ---
RESTLESSNESS RESOLVED After sedation increase, pt calm and relaxed in bed with no signs of movement. Respirations equal and unlabored. VSS. Will continue to monitor pt.
[2018-10-11] MEDS: cefTRIAXone 1GM/50ML D5W 50 ML IV SCH (21:57)
--- NOTE | 2018-10-11 22:16 | NUR ---
Respiratory note: ROUTINE VENT CHECK BS ARE CLEAR T/O, NO SX DONE AT THIS TIME. NO VENT CHANGES MADE. WILL CONTINUE TO MONITOR Q2H AND NEEDED. COURTNEY RUFFIN AT BEDSIDE
[2018-10-12] VITALS (56 sets, daily range): BP systolic 96–151; BP diastolic 47–92
--- NOTE | 2018-10-12 05:10 | NUR ---
PHONE CALL FROM MOTHER Received phone call from yamini Rodríguez's mother who provided the correct password. Updated on pt condition and answered all questions. Anne verbalized understanding.
--- NOTE | 2018-10-12 05:40 | NUR ---
BATH/LINEN CHANGE Pt given complete CHG bath. Skin integrity assessed for any changes, no changes noted. Linens changed. Pt repositioned for comfort. Pt tolerated well and VSS.
[2018-10-12 05:47] LABS: Basophils # (auto) 0 uL; Basophils % (auto) 0.5 % (0.0-2.0); Eosinophils # (auto) 0.1 uL; Eosinophils % (auto) 2.7 % (0.0-7.0); Hematocrit 36.6 % (36.0-46.0); Hemoglobin 12.3 g/dL (12.2-16.2); Lymphocytes # (auto) 1.2 uL; Lymphocytes % (auto) 25.9 % (10.0-50.0); Mean Corpuscular Hemoglobin 29.1 pg (28.0-32.0); Mean Corpuscular Hgb Conc. 33.6 g/dL (32.0-36.0); Mean Corpuscular Volume 86.5 fL (80.0-100.0); Monocytes # (auto) 0.7 uL; Monocytes % (auto) 15.7 % (0.0-12.0); Neutrophils # (auto) 2.6 uL; Neutrophils % (auto) 55.2 % (37.0-80.0); Platelet Count (auto) 150 10^3/uL (140-450); Red Blood Cells 4.24 10^6/uL (4.0-5.20); Red Cell Distribution Width 14.2 % (11.8-14.3); White Blood Cell 4.8 10^3/uL (4.4-10.8)
[2018-10-12 06:11] LABS: Calcium 7.8 mg/dL (8.5-10.1); Potassium 3.4 mmol/L (3.5-5.1)
[2018-10-12] MEDS: MIDAZOLAM DRIP 50 mg/50mL 50 ML IV SCH (07:13)
[2018-10-12] MEDS: PROPOFOL 100 ML IV SCH (07:14)
--- NOTE | 2018-10-12 07:14 | NUR ---
REPORT Report given to COURTNEY Deutsch. Care endorsed.
--- NOTE | 2018-10-12 07:15 | NUR ---
Opening Shift Note Assumed care of patient from Mary CHAVES RN, patient is sedated and intubated. No S/S of distress/SOB or pain. Sedation decreased to half see IV spread sheet. RN sitting at bedside 1:1 while patient is waking up and for CPAP trial to start.
--- NOTE | 2018-10-12 08:43 | NUR ---
SEIZURE ALL PATIENT SEDATION TURNED OFF AROUND 0815, PATIENT NOTED TO HAVE A SEIZURE, SHAKING WHOLE BODY WITH BACK ARCHED IN,LAYING TO RIGHT SIDE TRYING TO TURN ONTO STOMACH PATIENT GIVEN ATIVAN PER MD ORDER . DR. LOWE PAGED TO NOTIFY. MD CALLED BACK AND NEW ORDER FOR STAT PROLACTIN. SEE MD ORDERS. VERBALIZED UNDERSTANDING.
--- NOTE | 2018-10-12 09:19 | NUR ---
Respiratory note: CPAP TRIAL INITIATED. PT IS AWAKE AND FOLLOWING COMMANDS, HR 86, RR 15, SPO2 100%,BP 86/59. ABG TO FOLLOW
--- NOTE | 2018-10-12 10:15 | NUR ---
SEIZURE PATIENT NOTED TO HAVE A SEIZURE, SHAKING WHOLE BODY WITH BACK ARCHED IN,LAYING TO RIGHT SIDE TRYING TO TURN ONTO STOMACH. DR. LOWE PAGED TO NOTIFY. MD CALLED BACK AND WAS INFORMED. VERBALIZED UNDERSTANDING.
--- NOTE | 2018-10-12 10:45 | NUR ---
PATIENT EXTUBATED REFUSING TO WEAR COLD MIST, KEEPS PULLING OFF O2 SAT MONITOR, TRYING TO PULL OUT IV'S. CALL OUT TO KAMILA PER PATIENT REQUEST.
--- NOTE | 2018-10-12 10:45 | NUR ---
Respiratory note: EXTUBATED PT PER , AND PLACED ON 28% COOL MIST AEROSOL. NO STRIDOR HEARD OR RESP DISTRESS NOTED. RN AT BEDSIDE. HR 109, SPO2 99%, BP 135/89.
--- NOTE | 2018-10-12 11:00 | NUR ---
REFUSED KEPPRA PATIENT REFUSES TO TAKE KEPPRA PER MD ORDER PATIENT STATES," I DON'T HAVE REAL SEIZURES, I HAVE PSEUDO SEIZURES BECAUSE I DON'T GO TO THERAPY." KEPPRA NOT GIVEN PER PATIENT REQUEST. MD LOWE NOTIFIED
[2018-10-12] MEDS: PANTOPRAZOLE 40 MG/10 ML VIAL IV SCH (11:25)
[2018-10-12] MEDS: LEVETIRACETAM INJ 500 MG in D5W 5% 100 ML IV SCH (11:25)
[2018-10-12] MEDS: SODIUM CHLORIDE 0.9% 1,000 ML IV SCH (11:45)
--- NOTE | 2018-10-12 12:00 | NUR ---
PATIENT VERBALLY ABUSIVE PATIENT VERBALLY ABUSING CHARGE NURSE, JARVISG, TRYING TO PUT HER HANDS ON CHARGE NURSE. STATES SHE DOESN'T WANT TO BE HERE SHE WANTS TO LEAVE. PATIENT STATES," I WANT TO SEE THE LAW THAT STATES I CAN'T LEAVE." TRIED EXPLAINING TO PATIENT THAT SHE STILL HAS SEDATING MEDICATIONS IN HER BODY THAT IS MAKING HER DROWSY AND IT'S NOT SAFE TO LEAVE AT THIS TIME. PATIENT REFUSES TO WEAR OXYGEN, REFUSES TO WEAR BLOOD PRESSURE CUFF FOR VITAL SIGNS, REFUSES TO WEAR PULSE OX FOR O2 SATURATION AND REFUSES TO LISTEN TO NURSE WHO IS TRYING TO KEEP PATIENT SAFE.
--- NOTE | 2018-10-12 12:15 | NUR ---
WHALEY CATHETER REMOVED WHALEY CATHETER REMOVED, PER PATIENT REQUEST. WHALEY WAS REMOVED INTACT, PATIENT TOLERATED PROCEDURE WELL.
[2018-10-12] MEDS ORDERED: POTASSIUM CHL 20 Meq TABLET PO ONE (13:00)
--- NOTE | 2018-10-12 13:10 | NUR ---
I faxed Dr. Williamson's progress notes along with updated transfer order to [facility].
--- NOTE | 2018-10-12 13:57 | NUR ---
Will reassess when medically stable and closer to discharge, pt on a ventilator. Addendum: 10/12/18 at 1358 by CURT CASTAÑEDA Amended: Links added.
--- NOTE | 2018-10-12 14:17 | NUR ---
SPOKE TO [place] POLYGRAPH EXAMINER [facility] SUKI CALLED AND ASKED IF PATIENT COULD BE DOWNGRADED TO [facility] STAT[facility]. DR. GAITAN CALLED AND NEW ORDER RECEIVED TO DOWNGRADE PATIENT TO [facility] AT [facility]. CALLED SUKI BACK AND INFORMED HER. SUKI STATED THAT SHE WILL SET UP TRANSPORT FOR PATIENT TO GO TO [facility].
--- NOTE | 2018-10-12 15:58 | NUR ---
PATIENT RESTING QUIETLY AT THIS TIME. PATIENT IS PLAYING ON HER CELL PHONE.
--- NOTE | 2018-10-12 17:25 | NUR ---
PATIENTS MOTHER HERE VISITING.
--- NOTE | 2018-10-12 18:54 | NUR ---
REPORT CALLED TO [facility] NURSE REPORT CALLED AND GIVEN TO MARIE HERRERA [facility] NURSE AT [phone]. TRANSPORT WILL ARRIVE ARROUND [address] Jordan BARRIENTOS
--- NOTE | 2018-10-12 19:56 | NUR ---
Respiratory note: ASSESSED PT FOR PRN MED NEB AT THIS TIME, PT DENIES SOB AT THIS TIME, NO RESP DISTRESS NOTED, NO TX INDICATED, PULSE OX 100% ON 2L NC, HR 84, RR 20, BILATERAL BS CLEAR.
--- NOTE | 2018-10-12 20:20 | NUR ---
RN NOTES PATIENT WAS GETTING FRUSTRATED THAT THE AMBULANCE STAFF STILL NOT HERE EXPLAINED TO HER THAT I WILL CALL THEM AND I WAS JUST WITH THE PHONE WITH HER GRAND MA SHE SAID SHE WANTED TO DRIVE OUT OF HERE EXPLAINED THAT IS NOT SAFE, SHE NEEDS TO STAY HERE AND I WILL FOLLOW UP FOR THE AMBULANCE PATIENT REMOVED HER NASAL CANNULA, SATURATIONS 99-100%
--- NOTE | 2018-10-12 20:20 | NUR ---
FAMILY CALLED PATIENT'S GRANDMOTHER KAMILA CALLED. CORRECT PASSWORD WAS GIVEN BY HER. UPDATED HER THAT PATIENT IS STILL HERE. KAMILA IS A LITTLE BIT UPSET OF WHAT WHAT HAPPENED TODAY. SHE SAID THAT SHE WANTED TO TALKED TO THE PATIENT'S NEUROLOGIST SO THAT SHE CAN UNDERSTAND WHATS HAPPENING WITH HER. ACCORDING TO HER, SHE WASN'T ALLOWED TO COME IN UNTIL 3PM. SHE SAID THAT SHE CALLED [facility] AND EVEN HEARD THE RN TAKING CARE OF HER SAYING "IF YOU WILL NOT BEHAVE, I WILL NOT LET THEM IN. " SHE SAID SHE KNEW THAT THE PATIENT NEEDED TO BE CONTROLLED BUT SHE IS UPSET ON HOW THE RN HANDLED THE SITUATION AND THE FACT THAT THE RN LIED TO HER SHE SAID. SHE IS FRUSTRATED TOO THAT SHE WASN'T ABLE TO TALK TO THE DOCTOR. SHE WANTED TO TALK TO HUBER. INFORMED HER THAT HUBER, OUR DIE MACHINE OPERATOR IS NOT HERE BUT WILL INFORM HER TOMORROW ABOUT THE SITUATION. I WILL ALSO INFORM THAT CHARGE NURSE GLENN
--- NOTE | 2018-10-12 20:32 | NUR ---
[facility] called [facility] transfer service to follow up for the ambulance transfer talked to Rafat [phone] she said the transport was changed to 2030hrs
--- NOTE | 2018-10-12 20:59 | NUR ---
TRANSPORT/AMBULANCE [facility] IS HERE TO TRANSPORT PATIENT. WHILE IN GIVING REPORT,PATIENT SUDDENLY WENT OUT OF BED, WAS ANGRY AND AGITATED. SHE SAID " DON'T LET HIM NEAR ME". INFORMED HER THAT I'M GIVING REPORT RIGHT NOW AND THEY WILL TAKE HER AFTER. PATIENT WALKED OUT OF HER ROOM. SHE DOES NOT WANT ME TO HOLD HER. PATIENT IS A LITTLE BIT GETTING OFF BALANCE. I STOOD NEAR HER WHILE THE [facility] STAFF IS PREPARING HER GURNEY/BED. TWO OF THE [facility] STAFF HELPED HER TO GET IN THE GURNEY SHE DOES NOT WANT ME TO HOLD HER AND THAT THE [facility] STAFF WAS OK TO HOLD HER.
--- NOTE | 2018-10-12 21:00 | NUR ---
PATIENT WAS DISCHARGED
--- NOTE | 2018-10-12 21:05 | NUR ---
REPORT GAVE LATEST VS AND INFORMATION TO COURTNEY TORRES OF [place]
--- NOTE | 2018-10-13 04:43 | NUR ---
CALLED [facility] FOR THE TRANSFER CHECKLIST TALKED TO COURTNEY TORRES HE WILL FAXED IT OVER
--- NOTE | 2018-10-13 05:50 | NUR ---
CALLED [facility] TALKED TO COURTNEY TORRES HE IS UNABLE TO FAX THE PAPER OVER NONE OF THEM KNOW HOW TO USE IT HE SAID TO CALL LATER WHEN THE OUTCOME ANALYST IS AVAILABLE WILL INFORM CHARGE NURSE TO FOLLOW UP
== END 2018-10-12 21:15 | disposition short-term general hospital (02) | DRG 208 ==
LOC: EDBD 20:54 → ER 21:00 → ICU WEST 10-10 05:20
PROVIDERS: ADMIT Nurse Practitioner Family; ATTEND Internal Medicine
PROC: 5A1945Z Respiratory Ventilation, 24-96 Consecutive Hours (ICD-10-PCS; principal; 2018-10-10)
PROC: 0BH17EZ Insertion of Endotracheal Airway into Trachea, Via Natural or Artificial Opening (ICD-10-PCS; 2018-10-10)
DX: J96.00 Acute respiratory failure, unspecified whether with hypoxia or hypercapnia (principal); N39.0 Urinary tract infection, site not specified; G40.901 Epilepsy, unspecified, not intractable, with status epilepticus; J45.909 Unspecified asthma, uncomplicated; E87.6 Hypokalemia; F12.10 Cannabis abuse, uncomplicated; B96.20 Unspecified Escherichia coli [E. coli] as the cause of diseases classified elsewhere; F17.210 Nicotine dependence, cigarettes, uncomplicated; Z79.899 Other long term (current) drug therapy; Z82.49 Family history of ischemic heart disease and other diseases of the circulatory system; Z91.14 Patient's other noncompliance with medication regimen; Z88.5 Allergy status to narcotic agent
CPT/HCPCS: 31500; 36415; 36600; 70450; 71045; 80048; 80053; 80164; 80185; 80307; 80320; 81001; 82805; 83735; 84702; 85025; 87040; 87070; 87081; 87086; 87088; 87186; 87205; 94002; 94003; 94640; 95819; 96365; 96367; 96375; 99291; C9113; G0378; J0330; J0696; J2250; J2704; J3480; J7060

== ENCOUNTER 2019-02-06 13:42 | Inpatient (IN) | payer OTHER, MEDICAID ==
[~2019-02-06] VITALS: Ht 162.6 cm; Wt 59.0 kg
[2019-02-06] MEDS ORDERED: SODIUM CHLORIDE 0.9% 1,000 ML IVB ONE (13:49)
[2019-02-06] MEDS ORDERED: LORazepam 2MG/ML-1ML VIAL IV ONE (13:57)
[2019-02-06] MEDS ORDERED: LEVETIRACETAM INJ 1,000 MG in D5W 5% 100 ML IV ONE (14:00)
[2019-02-06] MEDS: LORazepam 2MG/ML-1ML VIAL IV ONE (14:04)
[2019-02-06 14:20] LABS: Basophils # (auto) 0 uL; Basophils % (auto) 0.7 % (0.0-2.0); Eosinophils # (auto) 0.1 uL; Eosinophils % (auto) 1.6 % (0.0-7.0); Hematocrit 44.7 % (36.0-46.0); Lymphocytes # (auto) 1.2 uL; Lymphocytes % (auto) 19.1 % (10.0-50.0); Mean Corpuscular Hgb Conc. 33.6 g/dL (32.0-36.0); Mean Corpuscular Volume 86.5 fL (80.0-100.0); Monocytes # (auto) 0.4 uL; Monocytes % (auto) 6.3 % (0.0-12.0); Neutrophils # (auto) 4.5 uL; Neutrophils % (auto) 72.3 % (37.0-80.0); Nucleated Red Blood Cells % 0.1 %; Platelet Count (auto) 305 10^3/uL (140-450); Red Blood Cells 5.17 10^6/uL (4.0-5.20); Red Cell Distribution Width 14.6 % (11.8-14.3); White Blood Cell 6.3 10^3/uL (4.4-10.8)
[2019-02-06 14:39] LABS: Albumin 3.8 g/dL (3.4-5.0); Anion Gap 15 (5-15); Blood Alcohol < 3.0 mg/dL (0-5); Blood Urea Nitrogen 9 mg/dL (7-18); Calcium 8.7 mg/dL (8.5-10.1); Carbon Dioxide 18 mmol/L (21-32); Chloride 106 mmol/L (98-107); Glucose 107 mg/dL (74-106); Potassium 3.3 mmol/L (3.5-5.1); Sodium 139 mmol/L (136-145)
[2019-02-06 14:43] LABS: Alanine Aminotransferase 18 U/L (13-56); Alkaline Phosphatase 74 U/L (45-117); Aspartate Aminotransferase 15 U/L (15-37); BUN/Creatinine Ratio 8.3; Bilirubin, Total 0.8 mg/dL (0.2-1.0); GFR African American 82 mL/min; GFR Non-African American 67 mL/min; Total Protein 7.4 g/dL (6.4-8.2)
[2019-02-06] MEDS: SOD CHL 0.9%/ KCL 20MEQ 1,000 ML IV SCH (17:00)
[2019-02-06] MEDS ORDERED: LORazepam 2MG/ML-1ML VIAL IV PRN (17:00)
[2019-02-06] MEDS ORDERED: ONDANSETRON HCL 4 MG/2 ML VIAL IV PRN (17:00)
[2019-02-06] MEDS ORDERED: traMADol HCL 50 MG TAB PO PRN (17:00)
[2019-02-06] MEDS ORDERED: MORPHINE SULF INJ 2 MG/ML SYRINGE 1ML IV PRN (17:00)
[2019-02-06] MEDS ORDERED: ETOMIDATE (2MG/ML) 20ML VIAL IV ONE ×2 (17:15→17:45)
[2019-02-06] MEDS ORDERED: SUCCINYLCHOLINE CHLORIDE 20 MG/ML 10ML VIAL IV ONE ×2 (17:15→17:45)
[2019-02-06] MEDS ORDERED: MIDAZOLAM DRIP 50 mg/50mL 0 ML IV ONE (17:18)
[2019-02-06] MEDS ORDERED: PROPOFOL 100 ML IV ONE (17:20)
[2019-02-06] MEDS ORDERED: MIDAZOLAM HCL 5 MG/ML-1ML VIAL ONE (17:20)
[2019-02-06] MEDS: PROPOFOL 100 ML IV SCH (17:32)
[2019-02-06] MEDS ORDERED: NOREPINEPHRINE 8 MG/250ML KIT 250 ML IV ONE (17:34)
[2019-02-06] MEDS ORDERED: MIDAZOLAM HCL 1MG/1ML-2 ML VIAL IV ONE ×2 (17:45)
[2019-02-06] MEDS: NOREPINEPHRINE 8 MG/250ML KIT 250 ML IV SCH (17:45)
[2019-02-06] MEDS ORDERED: MIDAZOLAM DRIP 50 mg/50mL 50 ML IV ONE (17:46)
[2019-02-06] MEDS ORDERED: MIDAZOLAM DRIP 50 mg/50mL 50 ML IV SCH (17:54)
[2019-02-06] MEDS: IPRATROPIUM BROM 0.5 MG/2.5ML INH SOL NEB SCH ×2 (18:00→23:44)
[2019-02-06] MEDS: ALBUTEROL SULF 2.5 MG/0.5ML(0.5%) NEB SOLN NEB SCH ×2 (18:00→23:44)
[2019-02-06] MEDS: fentaNYL Drip 2500mCg/250mlNS 250 ML IV SCH (18:01)
[2019-02-06] MEDS ORDERED: fentaNYL Drip 2500mCg/250mlNS 250 ML IV ONE (18:01)
[2019-02-06] MEDS: MIDAZOLAM DRIP 50 mg/50mL 50 ML IV SCH (18:01)
[2019-02-06] MEDS ORDERED: fentaNYL Drip 2500mCg/250mlNS 250 ML IV SCH (18:11)
[2019-02-06 19:04] VITALS: BP 110/64
[2019-02-06 19:57] LABS: Alcohol, Urine < 3.0 mg/dL (0-5); Amphetamine Screen, Urine NEGATIVE (NEGATIVE); Barbiturate Scree,Urine NEGATIVE (NEGATIVE); Benzodiazephine Screen, Urine POSITIVE (NEGATIVE); Cannabinoid Screen, Urine POSITIVE (NEGATIVE); Cocaine Screen, Urine NEGATIVE (NEGATIVE); Opiate Scree,Urine NEGATIVE (NEGATIVE); Phencyclidine Screen, Urine NEGATIVE (NEGATIVE)
--- NOTE | 2019-02-06 20:01 | NUR ---
Respiratory note: RETURNED WITH PT FROM CT WITHOUT INCIDENCE. PT MANUALLY VENTILATED VIA AMBU BAG ON 100% DURING TRANSPORTS, PLACED ON TORRES CT VENT DURING CT. ET TUBE REMAINS SECURED AT 22CM AT THE LIP. NO DISTRESS NOTED.
[2019-02-06 21:30] VITALS: BP 102/61
[2019-02-06] MEDS ORDERED: LEVETIRACETAM 500 MG/5ML INJ IV ONE (21:50)
[2019-02-06] MEDS: FAMOTIDINE (10MG/ML) 2ML VL IV SCH (22:07)
[2019-02-06] MEDS: LEVETIRACETAM INJ 1,000 MG in D5W 5% 100 ML IV SCH (22:07)
[2019-02-06 23:40] VITALS: BP 98/52
[2019-02-07] VITALS (11 sets, daily range): BP systolic 91–118; BP diastolic 45–63
[2019-02-07] MEDS: SOD CHL 0.9%/ KCL 20MEQ 1,000 ML IV SCH ×3 (03:26→23:00)
[2019-02-07] MEDS: IPRATROPIUM BROM 0.5 MG/2.5ML INH SOL NEB SCH ×3 (06:25→18:00)
[2019-02-07] MEDS: ALBUTEROL SULF 2.5 MG/0.5ML(0.5%) NEB SOLN NEB SCH ×3 (06:25→18:00)
[2019-02-07] MEDS: PROPOFOL 100 ML IV SCH ×2 (08:11→15:39)
[2019-02-07 09:51] LABS: Basophils # (auto) 0 uL; Basophils % (auto) 0.5 % (0.0-2.0); Eosinophils # (auto) 0.1 uL; Hemoglobin 13.1 g/dL (12.2-16.2); Lymphocytes # (auto) 1.1 uL; Lymphocytes % (auto) 16.4 % (10.0-50.0); Mean Corpuscular Hemoglobin 30.8 pg (28.0-32.0); Mean Corpuscular Hgb Conc. 35.5 g/dL (32.0-36.0); Mean Corpuscular Volume 86.9 fL (80.0-100.0); Monocytes # (auto) 0.5 uL; Monocytes % (auto) 7.9 % (0.0-12.0); Neutrophils # (auto) 5.1 uL; Neutrophils % (auto) 74.2 % (37.0-80.0); Nucleated Red Blood Cells % 0.2 %; Platelet Count (auto) 182 10^3/uL (140-450); Red Blood Cells 4.26 10^6/uL (4.0-5.20); Red Cell Distribution Width 14.9 % (11.8-14.3); White Blood Cell 6.9 10^3/uL (4.4-10.8)
[2019-02-07 10:07] LABS: Albumin 2.8 g/dL (3.4-5.0); BUN/Creatinine Ratio 6.8; Calcium 7.6 mg/dL (8.5-10.1); Potassium 3.8 mmol/L (3.5-5.1)
[2019-02-07 10:09] LABS: INR 1.05 (0.9-1.15)
[2019-02-07] MEDS: FAMOTIDINE (10MG/ML) 2ML VL IV SCH ×2 (10:09→22:00)
[2019-02-07 10:10] LABS: Bilirubin, Total 0.7 mg/dL (0.2-1.0); Total Protein 5.3 g/dL (6.4-8.2)
[2019-02-07] MEDS: LEVETIRACETAM INJ 1,000 MG in D5W 5% 100 ML IV SCH ×2 (10:18→22:17)
[2019-02-07] MEDS: MIDAZOLAM DRIP 50 mg/50mL 50 ML IV SCH ×2 (10:26→15:39)
--- NOTE | 2019-02-07 13:47 | NUR ---
RT NOTE: VT DECREASED TO [address] Taj MADSEN WRITTEN ORDER. RN SHENA AWARE/BEDSIDE.
--- NOTE | 2019-02-07 14:30 | NUR ---
PICC line placement Patient's mother educated on need for PICC line placement by primary RN and MD. All risks and benefits explained and all questions and concerns addressed prior to procedure. Noted past medical history and allergies with no contraindications. INR and Plt counts within acceptable range. 5 fr PICC line inserted via right brachial vein using [employer] US and Tip Location System. Sterile technique with maximum barrier precautions utilized. Blood return obtained from each of the three lumens and each flushed easily with NS using proper technique. PICC secured with Stat-lock; biodisc and occlusive dressing applied. Stat portable chest x-ray obtained for PICC tip placement. *Baseline Arm Circumference 23 cm. *Internal Length 40 cm. *External Length 0 cm. *PICC lot #[id number]. Note: Inserted on second attempt by Teja VALDEZ, this RN oriented her during process. EBL 6mls. Tolerated well.
[2019-02-07] MEDS ORDERED: LIDOCAINE 1% (LOCAL ANESTH.) PF 5ml SDV ID ONE (14:45)
--- NOTE | 2019-02-07 14:49 | NUR ---
Okay To Use PICC Line X-ray completed. Primary RN notified.
[2019-02-07] MEDS: NOREPINEPHRINE 8 MG/250ML KIT 250 ML IV SCH (17:45)
[2019-02-07] MEDS: fentaNYL Drip 2500mCg/250mlNS 250 ML IV SCH (18:01)
[2019-02-07] MEDS: ACETAMINOPHEN 650 mg PER 20 mL UD PO PRN (18:34)
[2019-02-07] MEDS: SODIUM CHLOR 0.9% PF (SALINE LOCK) 10ML VIAL/SYR IV SCH (22:00)
[2019-02-08] VITALS (7 sets, daily range): BP systolic 91–108; BP diastolic 41–58
[2019-02-08] MEDS: ALBUTEROL SULF 2.5 MG/0.5ML(0.5%) NEB SOLN NEB SCH ×2 (00:28→05:36)
[2019-02-08] MEDS: IPRATROPIUM BROM 0.5 MG/2.5ML INH SOL NEB SCH ×2 (00:28→05:36)
[2019-02-08] MEDS: ACETAMINOPHEN 650 mg PER 20 mL UD PO PRN ×2 (00:29→06:36)
[2019-02-08] MEDS ORDERED: LEVOFLOXACIN 500MG 100 ML IV ONE (06:15)
[2019-02-08 06:26] LABS: BUN/Creatinine Ratio 4.4; Potassium 3.8 mmol/L (3.5-5.1)
[2019-02-08] MEDS: SOD CHL 0.9%/ KCL 20MEQ 1,000 ML IV SCH (09:02)
[2019-02-08] MEDS: SODIUM CHLOR 0.9% PF (SALINE LOCK) 10ML VIAL/SYR IV SCH (10:00)
[2019-02-08] MEDS: FAMOTIDINE (10MG/ML) 2ML VL IV SCH (10:24)
[2019-02-08 10:49] LABS: Urine Bacteria FEW /hpf (None Seen); Urine Blood Negative /uL (Negative); Urine Mucus FEW (None Seen); Urine Specific Gravity 1.011 (1.001-1.035); Urine WBC 208 /hpf (0 - 5); Urine WBC Clumps PRESENT /hpf (None Seen)
[2019-02-08] MEDS: LEVETIRACETAM INJ 1,000 MG in D5W 5% 100 ML IV SCH (11:00)
[2019-02-08] MEDS ORDERED: D5W/SOD CHL 0.45%/KCL 20MEQ 1,000 ML IV SCH (11:00)
[2019-02-08] MEDS ORDERED: cefTRIAXone 1GM/50ML D5W 50 ML IV SCH (11:36)
[2019-02-08] MEDS ORDERED: cefTRIAXone 1GM/50ML D5W 50 ML IV ONE (12:00)
[2019-02-08] MEDS ORDERED: AZITHROMYCIN 500MG/ 250ML 250 ML IV SCH (13:00)
[2019-02-09] MEDS ORDERED: cefTRIAXone 1GM/50ML D5W 50 ML IV SCH (09:00)
== END 2019-02-08 11:28 | disposition short-term general hospital (02) | DRG 871 ==
LOC: EDBD 13:42 → ER 13:42 → TELE 13:43
PROVIDERS: ADMIT Nurse Practitioner Acute Care; ATTEND Internal Medicine
PROC: 5A1945Z Respiratory Ventilation, 24-96 Consecutive Hours (ICD-10-PCS; principal; 2019-02-06)
PROC: 0BH17EZ Insertion of Endotracheal Airway into Trachea, Via Natural or Artificial Opening (ICD-10-PCS; 2019-02-06)
DX: A41.9 Sepsis, unspecified organism (principal); N17.0 Acute kidney failure with tubular necrosis; J96.00 Acute respiratory failure, unspecified whether with hypoxia or hypercapnia; N39.0 Urinary tract infection, site not specified; E87.6 Hypokalemia; F12.90 Cannabis use, unspecified, uncomplicated; F17.210 Nicotine dependence, cigarettes, uncomplicated; F41.9 Anxiety disorder, unspecified; G40.901 Epilepsy, unspecified, not intractable, with status epilepticus; J44.9 Chronic obstructive pulmonary disease, unspecified; Z82.49 Family history of ischemic heart disease and other diseases of the circulatory system; Z83.3 Family history of diabetes mellitus; Z88.5 Allergy status to narcotic agent
CPT/HCPCS: 31500; 36415; 36600; 51702; 70450; 71045; 80048; 80053; 80307; 80320; 81001; 82550; 82805; 82962; 83605; 83735; 84702; 85025; 85610; 87040; 87070; 87205; 94002; 94003; 94640; 94761; 95819; 96374; 96375; G0378; J0330; J1956; J2250; J2704; J3490; J7060

== ENCOUNTER 2022-07-10 11:35 | Inpatient (IN) | payer MEDICAID, OTHER ==
[~2022-07-10] VITALS: Ht 157.5 cm; Wt 57.9 kg
[2022-07-10] MEDS ORDERED: LORazepam 2MG/ML-1ML VIAL ONE ×2 (11:39→18:21)
[2022-07-10] MEDS ORDERED: LORazepam 2MG/ML-1ML VIAL IV ONE ×4 (12:15→18:21)
[2022-07-10 12:27] LABS: Basophils # (auto) 0.1 10 ^3/uL (0-0.2); Basophils % (auto) 0.6 % (0.0-2.0); Eosinophils # (auto) 0.2 10 ^3/uL (0-0.8); Hematocrit 48.3 % (36.0-46.0); Monocytes # (auto) 0.9 10 ^3/uL (0-1.3); White Blood Cell 13.1 10^3/uL (4.4-10.8)
[2022-07-10 12:28] LABS: Eosinophils % (auto) 1.2 % (0.0-7.0); Hemoglobin 15.9 g/dL (12.2-16.2); Lymphocytes # (auto) 3.4 10 ^3/uL (0.4-5.4); Lymphocytes % (auto) 25.9 % (10.0-50.0); Mean Corpuscular Hgb Conc. 32.9 g/dL (32.0-36.0); Mean Corpuscular Volume 84.9 fL (80.0-100.0); Monocytes % (auto) 7.1 % (0.0-12.0); Neutrophils # (auto) 8.6 10 ^3/uL (1.6-8.6); Neutrophils % (auto) 65.2 % (37.0-80.0); Nucleated Red Blood Cells % 0.1 %; Red Blood Cells 5.69 10^6/uL (4.0-5.20); Red Cell Distribution Width 15.2 % (11.8-14.3)
[2022-07-10 12:33] LABS: Calcium 9.7 mg/dL (8.5-10.1); Potassium 4.6 mmol/L (3.5-5.1)
[2022-07-10 12:36] LABS: BUN/Creatinine Ratio 9.2; Bilirubin, Total 0.5 mg/dL (0.2-1.0); Total Protein 8.6 g/dL (6.4-8.2)
[2022-07-10] MEDS ORDERED: DOCUSATE SOD 100 MG CAP PO PRN (17:45)
[2022-07-10] MEDS ORDERED: ONDANSETRON HCL 4 MG/2 ML VIAL IV PRN (17:45)
[2022-07-10] MEDS ORDERED: TEMAZEPAM 15 MG CAP PO PRN (17:45)
[2022-07-10] MEDS ORDERED: LORazepam 0.5 MG TAB PO PRN (17:45)
[2022-07-10] MEDS ORDERED: MAALOX PLUS or MAALOX 30 ML PO PRN (17:45)
[2022-07-10] MEDS ORDERED: ACETAMINOPHEN 325 MG TAB PO PRN (17:45)
[2022-07-10] MEDS ORDERED: LORazepam 2MG/ML-1ML VIAL IV PRN (18:45)
[2022-07-10] MEDS: cefTRIAXone 1GM/50ML D5W 50 ML IV SCH (18:50)
[2022-07-10] MEDS: SODIUM CHLORIDE 0.9% 1,000 ML IV SCH (18:50)
[2022-07-10] MEDS ORDERED: ETOMIDATE (2MG/ML) 20ML VIAL IV ONE ×2 (18:50→19:00)
[2022-07-10] MEDS ORDERED: MIDAZOLAM HCL 10 ML IV ONE (18:50)
[2022-07-10] MEDS ORDERED: SUCCINYLCHOLINE CHLORIDE 20 MG/ML 10ML VIAL IV ONE ×2 (18:51→19:00)
[2022-07-10 19:00] VITALS: BP 124/97
[2022-07-10] MEDS ORDERED: MIDAZOLAM HCL 5 MG/ML-1ML VIAL IV ONE ×2 (19:00)
[2022-07-10] MEDS: MIDAZOLAM DRIP 50 mg/50mL 50 ML IV SCH (19:00)
[2022-07-10] MEDS ORDERED: PROPOFOL 100 ML IV ONE (19:08)
[2022-07-10] MEDS: PROPOFOL 100 ML IV SCH (19:10)
[2022-07-10] MEDS ORDERED: PROPOFOL 100 ML IV SCH ×2 (19:15)
[2022-07-10 19:47] LABS: Urine Bacteria FEW /hpf (None Seen); Urine Blood Negative /uL (Negative); Urine Mucus FEW (None Seen); Urine Specific Gravity 1.024 (1.001-1.035); Urine WBC 10 /hpf (0 - 5)
[2022-07-10 20:02] LABS: Amphetamine Screen, Urine NEGATIVE (NEGATIVE); Benzodiazephine Screen, Urine POSITIVE (NEGATIVE); Cannabinoid Screen, Urine POSITIVE (NEGATIVE); Cocaine Screen, Urine NEGATIVE (NEGATIVE); Phencyclidine Screen, Urine NEGATIVE (NEGATIVE)
[2022-07-10 20:10] LABS: Barbiturate Scree,Urine NEGATIVE (NEGATIVE); Opiate Scree,Urine NEGATIVE (NEGATIVE)
[2022-07-10 20:46] VITALS: BP 100/60
[2022-07-10 20:49] VITALS: BP 100/60
[2022-07-10 22:50] VITALS: BP 97/55
[2022-07-10] MEDS ORDERED: levETIRAcetam 500 MG/5ML INJ IV ONE (23:12)
[2022-07-11] VITALS (65 sets, daily range): BP systolic 95–124; BP diastolic 59–84
[2022-07-11] MEDS: NOREPINEPHRINE 8 MG/250ML KIT 250 ML IV SCH (01:18)
[2022-07-11 05:18] LABS: Basophils # (auto) 0.1 10 ^3/uL (0-0.2); Basophils % (auto) 0.7 % (0.0-2.0); Eosinophils # (auto) 0.2 10 ^3/uL (0-0.8); Eosinophils % (auto) 1.9 % (0.0-7.0); Hemoglobin 14.9 g/dL (12.2-16.2); Lymphocytes # (auto) 1.6 10 ^3/uL (0.4-5.4); Lymphocytes % (auto) 15.9 % (10.0-50.0); Mean Corpuscular Hemoglobin 29.1 pg (28.0-32.0); Mean Corpuscular Hgb Conc. 34.6 g/dL (32.0-36.0); Mean Corpuscular Volume 84.1 fL (80.0-100.0); Monocytes # (auto) 0.8 10 ^3/uL (0-1.3); Monocytes % (auto) 7.9 % (0.0-12.0); Neutrophils # (auto) 7.4 10 ^3/uL (1.6-8.6); Neutrophils % (auto) 73.6 % (37.0-80.0); Nucleated Red Blood Cells % 0.2 %; Red Blood Cells 5.12 10^6/uL (4.0-5.20); Red Cell Distribution Width 15.3 % (11.8-14.3)
[2022-07-11 05:40] LABS: Potassium 3.6 mmol/L (3.5-5.1)
[2022-07-11 05:50] LABS: BUN/Creatinine Ratio 16.7; Calcium 8.5 mg/dL (8.5-10.1)
[2022-07-11] MEDS: PROPOFOL 100 ML IV SCH ×2 (09:12→17:13)
[2022-07-11] MEDS: SODIUM CHLORIDE 0.9% 1,000 ML IV SCH (09:12)
[2022-07-11] MEDS: cefTRIAXone 1GM/50ML D5W 50 ML IV SCH (09:12)
[2022-07-11] MEDS: MIDAZOLAM DRIP 50 mg/50mL 50 ML IV SCH ×3 (09:13→22:17)
[2022-07-11] MEDS ORDERED: DEXTROSE (50%) 50ML SYRG IV PRN (11:15)
[2022-07-11] MEDS: ACCU-CHEK COMFORT CURVE STRIP VI SCH ×2 (12:00→18:16)
[2022-07-11] MEDS: InsuLIN REG 1unit/0.01ml Soln (100units/ml) SC SCH ×2 (12:00→18:00)
[2022-07-12] VITALS (80 sets, daily range): BP systolic 92–119; BP diastolic 49–75
[2022-07-12] MEDS ORDERED: LORazepam 2MG/ML-1ML VIAL IV PRN
[2022-07-12] MEDS: PROPOFOL 100 ML IV SCH ×4 (00:25→17:37)
[2022-07-12] MEDS: ACCU-CHEK COMFORT CURVE STRIP VI SCH ×4 (00:37→20:51)
[2022-07-12] MEDS: NOREPINEPHRINE 8 MG/250ML KIT 250 ML IV SCH (01:00)
[2022-07-12] MEDS: MIDAZOLAM DRIP 50 mg/50mL 50 ML IV SCH ×4 (02:19→21:43)
[2022-07-12 05:21] LABS: Potassium 3.7 mmol/L (3.5-5.1)
[2022-07-12 05:23] LABS: Albumin 3.4 g/dL (3.4-5.0); BUN/Creatinine Ratio 16.4; Calcium 8.8 mg/dL (8.5-10.1)
[2022-07-12 05:26] LABS: Bilirubin, Total 0.5 mg/dL (0.2-1.0); Total Protein 6.3 g/dL (6.4-8.2)
[2022-07-12 05:42] LABS: Basophils # (auto) 0 10 ^3/uL (0-0.2); Basophils % (auto) 0.4 % (0.0-2.0); Eosinophils # (auto) 0.2 10 ^3/uL (0-0.8); Eosinophils % (auto) 2.3 % (0.0-7.0); Hematocrit 40.9 % (36.0-46.0); Hemoglobin 13.4 g/dL (12.2-16.2); Lymphocytes # (auto) 1.1 10 ^3/uL (0.4-5.4); Lymphocytes % (auto) 15.7 % (10.0-50.0); Mean Corpuscular Hemoglobin 27.6 pg (28.0-32.0); Mean Corpuscular Hgb Conc. 32.8 g/dL (32.0-36.0); Mean Corpuscular Volume 84.2 fL (80.0-100.0); Monocytes # (auto) 0.6 10 ^3/uL (0-1.3); Monocytes % (auto) 8.2 % (0.0-12.0); Neutrophils # (auto) 5.2 10 ^3/uL (1.6-8.6); Neutrophils % (auto) 73.4 % (37.0-80.0); Red Blood Cells 4.86 10^6/uL (4.0-5.20); Red Cell Distribution Width 15.2 % (11.8-14.3); White Blood Cell 7.1 10^3/uL (4.4-10.8)
[2022-07-12] MEDS: InsuLIN REG 1unit/0.01ml Soln (100units/ml) SC SCH ×3 (06:00→12:00)
[2022-07-12] MEDS: cefTRIAXone 1GM/50ML D5W 50 ML IV SCH (09:06)
[2022-07-12] MEDS: SODIUM CHLORIDE 0.9% 1,000 ML IV SCH (09:06)
[2022-07-12] MEDS ORDERED: DEXTROSE (50%) 50ML SYRG IV PRN (15:30)
[2022-07-13] VITALS (39 sets, daily range): BP systolic 99–126; BP diastolic 51–82
[2022-07-13] MEDS: PROPOFOL 100 ML IV SCH ×2 (00:17→05:23)
[2022-07-13] MEDS: NOREPINEPHRINE 8 MG/250ML KIT 250 ML IV SCH (01:00)
[2022-07-13] MEDS: SODIUM CHLORIDE 0.9% 1,000 ML IV SCH (05:04)
[2022-07-13] MEDS: ACCU-CHEK COMFORT CURVE STRIP VI SCH (09:37)
[2022-07-13] MEDS: cefTRIAXone 1GM/50ML D5W 50 ML IV SCH (09:55)
== END 2022-07-13 18:05 | disposition home or self-care (01) | DRG 53 ==
LOC: ER 11:35 → ICU CENTRL 16:03 → OVERFLOW 17:51 → ICU CENTRL 07-11 10:07
PROVIDERS: ADMIT Hospitalist; ATTEND Hospitalist
PROC: 5A1945Z Respiratory Ventilation, 24-96 Consecutive Hours (ICD-10-PCS; principal; 2022-07-10)
PROC: 0BH18EZ Insertion of Endotracheal Airway into Trachea, Via Natural or Artificial Opening Endoscopic (ICD-10-PCS; 2022-07-10)
PROC: 05HA33Z Insertion of Infusion Device into Left Brachial Vein, Percutaneous Approach (ICD-10-PCS; 2022-07-11)
PROC: B54NZZA Ultrasonography of Left Upper Extremity Veins, Guidance (ICD-10-PCS; 2022-07-11)
DX: G40.901 Epilepsy, unspecified, not intractable, with status epilepticus (principal); J96.01 Acute respiratory failure with hypoxia; R40.20 Unspecified coma; E87.3 Alkalosis; F41.9 Anxiety disorder, unspecified; Z20.822 Contact with and (suspected) exposure to COVID-19; F17.210 Nicotine dependence, cigarettes, uncomplicated; J45.909 Unspecified asthma, uncomplicated; Z79.899 Other long term (current) drug therapy; Z83.3 Family history of diabetes mellitus; Z88.8 Allergy status to other drugs, medicaments and biological substances
CPT/HCPCS: 36415; 36600; 70450; 71045; 80048; 80053; 80307; 81001; 81025; 82805; 82962; 84702; 85025; 87070; 87077; 87081; 87086; 87186; 87205; 87426; 94002; 94003; 96365; 96375; G0378; J0330; J0696; J2250; J2704; J7060

== ENCOUNTER 2022-07-14 16:36 | Emergency (ER) | payer MEDICAID ==
[~2022-07-14] VITALS: Ht 165.1 cm; Wt 54.5 kg
[2022-07-14 18:07] LABS: Urine Bacteria NONE SEEN /hpf (None Seen); Urine Blood Negative /uL (Negative); Urine Mucus FEW (None Seen); Urine Specific Gravity 1.026 (1.001-1.035); Urine WBC 2 /hpf (0 - 5)
[2022-07-14 18:51] VITALS: BP 125/95
== END 2022-07-14 19:56 | disposition home or self-care (01) ==
LOC: ER 16:36
DX: S40.022D Contusion of left upper arm, subsequent encounter (principal); F17.210 Nicotine dependence, cigarettes, uncomplicated; F12.10 Cannabis abuse, uncomplicated; Z32.02 Encounter for pregnancy test, result negative; X58.XXXD Exposure to other specified factors, subsequent encounter
CPT/HCPCS: 81001; 81025

== ENCOUNTER 2022-09-24 18:45 | Emergency (ER) | payer MEDICAID | END 2022-09-24 20:23 | disposition left against medical advice (07) | LOC: ER 18:45 | DX: R21 Rash and other nonspecific skin eruption (principal); Z53.21 Procedure and treatment not carried out due to patient leaving prior to being seen by health care provider ==